=== PATIENT | female | born 1955 ===

== ENCOUNTER 2017-08-28 18:05 | Emergency (ER) | payer MEDICARE ==
[2017-08-28 18:10] VITALS: BP 147/92; PULSE 86; RESP 16; TEMP 98.9; O2SAT 99
[2017-08-28] MEDS ORDERED: Naproxen 500 MG TAB PO STA (19:02)
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
--- NOTE | 2017-08-29 08:31 | RAD ---
PROCEDURE: Right Hip Radiographs. HISTORY: pain s/p trip and fall COMPARISON: None. FINDINGS: BONES: No acute fracture. JOINTS: Normal. SOFT TISSUES: Normal. OTHER FINDINGS: None. IMPRESSION: No demonstrated fracture or dislocation.
--- NOTE | 2017-08-29 08:31 | RAD ---
PROCEDURE: Left Knee Radiographs. HISTORY: Pain. COMPARISON: None. FINDINGS: BONES: No acute fracture. JOINTS: Unremarkable. JOINT EFFUSION: None. OTHER FINDINGS: Quadriceps tendon enthesophyte. IMPRESSION: No demonstrated fracture or dislocation.
--- NOTE | 2017-08-29 08:32 | RAD ---
PROCEDURE: Left Wrist Radiographs. HISTORY: pain s/p trip and fall COMPARISON: None. FINDINGS: BONES: No acute fracture. JOINTS: Diffuse joint space narrowing. SOFT TISSUES: Normal. OTHER FINDINGS: None. IMPRESSION: No demonstrated fracture or dislocation. Degenerative changes.
== END 2017-08-28 21:36 | disposition home or self-care (01) ==
LOC: H.ER 18:05
DX: S79.912A Unspecified injury of left hip, initial encounter (principal); M25.562 Pain in left knee; S69.92XA Unspecified injury of left wrist, hand and finger(s), initial encounter; W01.0XXA Fall on same level from slipping, tripping and stumbling without subsequent striking against object, initial encounter; Y92.410 Unspecified street and highway as the place of occurrence of the external cause; E11.9 Type 2 diabetes mellitus without complications; I10 Essential (primary) hypertension